=== PATIENT | female | born 1970 | race Caucasian/White ===

== ENCOUNTER → 2017-12-11 | Outpatient (CLI) | payer OTHER | LOC: M WUC 16:20 | DX: M79.672 Pain in left foot (principal) ==

== ENCOUNTER → 2023-09-10 | Outpatient (CLI) | payer OTHER | LOC: M WUC 10:34 | PROVIDERS: ATTEND Physician Assistant | DX: M25.562 Pain in left knee (principal); M79.672 Pain in left foot ==